=== PATIENT | female | born 1970 | race Caucasian/White ===

== ENCOUNTER 2021-11-13 06:56 | Day surgery (SDC) | payer OTHER ==
[2021-11-10 17:22] VITALS: BMI 24.5
[2021-11-13] MEDS ORDERED: MIDAZOLAM HCL 2 MG/2 ML SINGLE DOSE VIAL ONE (07:45)
[2021-11-13] MEDS ORDERED: SUCCINYLCHOLINE CHLORIDE 200 MG/10 ML SYRINGE ONE (07:45)
[2021-11-13] MEDS ORDERED: PROPOFOL 40 ML ONE (07:45)
[2021-11-13] MEDS ORDERED: BUPIVACAINE HCL/PF 2.5 MG/ML - 30 ML VIAL IJ ONE (09:06)
[2021-11-13] MEDS ORDERED: BUPIVACAINE HCL/EPINEPHRINE/PF 30 ML VIAL IJ ONE (09:06)
[2021-11-13] MEDS ORDERED: ONDANSETRON 4 MG/2 ML VIAL ONE (09:15)
[2021-11-13] MEDS ORDERED: KETOROLAC TROMETHAMINE 30 MG/1 ML VIAL ONE (09:15)
[2021-11-13] MEDS ORDERED: ceFAZolin SODIUM 1 GM VIAL ONE (09:15)
[2021-11-13] MEDS ORDERED: DEXAMETHASONE SOD PHOSPHATE 4 MG/1 ML VIAL ONE (09:15)
[2021-11-13 11:24] VITALS: RESP 20; TEMP 97.9
[2021-11-13 11:52] VITALS: BP 120/72; PULSE 64
== END 2021-11-13 12:15 | disposition home or self-care (01) ==
LOC: FASU 06:56
PROVIDERS: ATTEND Orthopaedic Surgery
PROC: 0SBD4ZZ Excision of Left Knee Joint, Percutaneous Endoscopic Approach (ICD-10-PCS; principal; 2021-11-13 09:29)
PROC: 0SBD4ZZ Excision of Left Knee Joint, Percutaneous Endoscopic Approach (ICD-10-PCS; 2021-11-13 09:29)
DX: S83.282D Other tear of lateral meniscus, current injury, left knee, subsequent encounter (principal); M22.42 Chondromalacia patellae, left knee; M23.307 Other meniscus derangements, unspecified meniscus, left knee; M67.52 Plica syndrome, left knee; M65.9 Synovitis and tenosynovitis, unspecified; X58.XXXD Exposure to other specified factors, subsequent encounter
CPT/HCPCS: 94760

== ENCOUNTER 2022-03-29 06:18 | Day surgery (SDC) | payer OTHER ==
[2022-03-10 10:15] VITALS: BMI 25.3
[2022-03-29] MEDS ORDERED: LIDOCAINE HCL 1%, 10 MG/ML (20ML VIAL) ONE (07:13)
[2022-03-29] MEDS ORDERED: MIDAZOLAM HCL 2 MG/2 ML SINGLE DOSE VIAL ONE (07:31)
[2022-03-29] MEDS ORDERED: PROPOFOL 40 ML ONE (07:31)
[2022-03-29] MEDS ORDERED: PROPOFOL 20 ML ONE (07:32)
[2022-03-29] MEDS ORDERED: LIDOCAINE HCL 2% JELLY 11 ML TP ONE (07:32)
[2022-03-29] MEDS ORDERED: ceFAZolin SODIUM 1 GM VIAL ONE (07:51)
[2022-03-29] MEDS ORDERED: DEXAMETHASONE SOD PHOSPHATE 4 MG/1 ML VIAL ONE (07:51)
[2022-03-29] MEDS ORDERED: ONDANSETRON 4 MG/2 ML VIAL ONE (07:51)
[2022-03-29] MEDS ORDERED: KETOROLAC TROMETHAMINE 30 MG/1 ML VIAL ONE (07:51)
[2022-03-29] MEDS ORDERED: ACETAMINOPHEN 325 MG TABLET (FP) PO PRN (08:09)
[2022-03-29] MEDS ORDERED: oxyCODONE HCL 5 MG TABLET PO PRN ×3 (08:09→08:41)
[2022-03-29] MEDS ORDERED: IBUPROFEN 400 MG TABLET (FP) PO PRN (08:09)
[2022-03-29] MEDS ORDERED: PROMETHAZINE HCL 25 MG/1 ML VIAL IVPUSH PRN (08:41)
[2022-03-29] MEDS ORDERED: ONDANSETRON 4 MG/2 ML VIAL IVPUSH PRN (08:41)
[2022-03-29] MEDS ORDERED: ACETAMINOPHEN 325 MG TABLET (FP) ONE (09:28)
[2022-03-29 09:42] VITALS: TEMP 97.8
[2022-03-29 09:51] VITALS: BP 116/61; PULSE 54; RESP 19
== END 2022-03-29 10:31 | disposition home or self-care (01) ==
LOC: FASU 06:18
PROVIDERS: ATTEND Orthopaedic Surgery
PROC: XW0 New Technology, Anatomical Regions, Introduction (ICD-10-PCS; 2022-03-29)
PROC: 0LN Tendons, Release (ICD-10-PCS; principal; 2022-03-29 07:55)
DX: M77.11 Lateral epicondylitis, right elbow (principal); M76.52 Patellar tendinitis, left knee
CPT/HCPCS: 0232T; 24357; 94760

== ENCOUNTER → 2022-06-17 | Day surgery (SDC) | payer OTHER | END | disposition home or self-care (01) | LOC: JLAB 10:07 → JRADIR 10:07 | PROVIDERS: ATTEND Orthopaedic Surgery | PROC: BQ38YZZ Magnetic Resonance Imaging (MRI) of Left Knee using Other Contrast (ICD-10-PCS; principal; 2022-06-17) | DX: M25.562 Pain in left knee (principal) | CPT/HCPCS: 27369; 70130-TC-FY; 73580-TC-FY; 73722-TC; 77002-TC-FY; 84703 ==